=== PATIENT | female | born 1995 | race Caucasian/White ===

== ENCOUNTER → 2016-06-05 | Outpatient (CLI) | payer OTHER ==
[2016-06-05 15:40] LABS: HEMATOCRIT 41.9 % (37.0-47.0); HEMOGLOBIN 13.8 g/dL (12.0-16.0); MEAN CORPUSCULAR HEMOGLOBIN 29.5 PG (27-31); MEAN CORPUSCULAR HGB CONC 32.9 g/dL (33-37); MEAN PLATELET VOLUME 9.8 FL (7.4-12.2); RDW COEFFICIENT OF VARIATION 12.6 % (11.5-14.5); RED BLOOD COUNT 4.68 10^6/uL (4.20-5.40); WHITE BLOOD COUNT 14.6 10^3/uL (4.8-10.8)
[2016-06-05 16:01] LABS: ASPARTATE AMINO TRANSFERASE 17 IU/L (8-39); BILIRUBIN,TOTAL 0.6 mg/dL (0.3-1.2); BLOOD UREA NITROGEN 6 mg/dL (7-22); CALCIUM 9.5 mg/dL (8.7-10.7); CHLORIDE 103 meq/L (98-112); CREATININE 0.6 mg/dL (0.50-1.20); EST GLOMERULAR FILTRATION > 60 (>60 ml/min/1.73m(2)); GLUCOSE 88 mg/dL (78-110); POTASSIUM 4.3 meq/L (3.8-5.2); SODIUM 138 meq/L (135-145); TOTAL PROTEIN 7.1 g/dL (6.1-8.0)
[2016-06-05 16:18] LABS: FREE T4 (FREE THYROXINE) 1.18 ng/dL (0.93-1.71)
== END ==
LOC: MOB LAB 14:50
PROVIDERS: ATTEND Nurse Practitioner Family
DX: R53.83 Other fatigue (principal); F33.9 Major depressive disorder, recurrent, unspecified; Z83.49 Family history of other endocrine, nutritional and metabolic diseases
CPT/HCPCS: 36415; 80053; 84439; 84443; 85027

== ENCOUNTER → 2016-07-16 | Outpatient (CLI) | payer OTHER ==
[2016-07-16 15:58] LABS: HEMOGLOBIN A1C 4.92 % (4.2-6.0); MEAN BLOOD GLUCOSE (CALC) 77.836 mg/dL
[2016-07-16 16:10] LABS: AMYLASE < 30 U/L (30-110)
== END ==
LOC: MOB LAB 14:09
PROVIDERS: ATTEND Nurse Practitioner Family
DX: E03.9 Hypothyroidism, unspecified (principal); I10 Essential (primary) hypertension; R10.13 Epigastric pain; Z83.3 Family history of diabetes mellitus
CPT/HCPCS: 36415; 82150; 83036; 83690; 84443

== ENCOUNTER → 2016-09-11 | Outpatient (CLI) | payer OTHER ==
[2016-09-11 16:07] LABS: FREE T4 (FREE THYROXINE) 1.27 ng/dL (0.93-1.71)
== END ==
LOC: MOB LAB 14:12
PROVIDERS: ATTEND Nurse Practitioner Family
DX: E03.9 Hypothyroidism, unspecified (principal)
CPT/HCPCS: 36415; 84439; 84443